=== PATIENT | male | born 1990 | race Caucasian/White ===

== ENCOUNTER 2022-10-23 16:43 | Emergency (ER) | payer OTHER, SELFPAY ==
[2022-10-23 17:06] VITALS: BP 134/83; PULSE 60; RESP 16; TEMP 36.4; O2SAT 99; BMI 23.7
--- NOTE | 2022-10-23 17:15 | DI.RAD.S_ITS ---
PROCEDURE: XR FOOT LT MIN 3V INDICATIONS: foot injury/pain TECHNIQUE: Three views of the foot were acquired. COMPARISON: None. FINDINGS: Bones: No fractures or dislocations. No suspicious bony lesions. Soft tissues: No tibiotalar joint effusion. Achilles tendon appears normal. IMPRESSION: Intact left foot. Dictated by: Deana Griffith M.D. on 10/23/2022 at 19:17 Approved by: Deana Griffith M.D. on 10/23/2022 at 19:17
--- NOTE | 2022-10-23 18:59 | ED_ITS ---
HPI - Extremity Injury (Lower) General Chief Complaint: Extremity Injury, Lower Stated Complaint: Smashed foot, Intense pain Time Seen by Provider: 10/23/22 18:59 Source: patient Mode of arrival: Ambulatory History of Present Illness HPI Narrative: 32-year-old male nonsmoker with noncontributory chronic medical history presents with his and a chief complaint of a work-related crush injury to his left foot. He states that he was moving a 1000 lb work stand that went over his foot earlier today. He states that he did not immediately have pain and in fact did not start having pain until he had gone home for a few hours. He states that he is now unable to weight bear and has significant pain circumferentially around his mid foot. He denies any ankle, calf or knee pain. He is able to move his toes but does state they feel like they might be tingling a bit. Related Data Previous Rx's Medication Instructions Recorded hydrocodone 5 mg-acetaminophen 325 1 tab PO Q4-6H PRN pain #10 tabs 10/23/22 mg tablet Allergies Allergy/AdvReac Type Severity Reaction Status Date / Time No Known Drug Allergies Allergy Verified 10/23/22 17:06 Review of Systems Review of Systems Narrative: GENERAL: Denies chills, fatigue, malaise, fever, sweats. HEENT: Denies sinus pain, ear pain, sore throat, difficulty swallowing, dizziness. RESPIRATORY: Denies dyspnea, cough, wheezing, hemoptysis, sputum. CARDIOVASCULAR: Denies chest pain, palpitations, orthopnea, edema, GASTROINTESTINAL: Denies nausea, vomiting, abdominal pain, diarrhea, constipation, melena. : Denies dysuria, frequency, incontinence, hematuria, urinary retention. MUSCULOSKELETAL: See HPI SKIN: Denies rash, skin lesions, or other NEUROLOGIC: Denies weakness, headache, numbness, change in speech, confusion, seizures, incoordination. PSYCHIATRIC: No concerning psychosocial issues. 12 point review of systems is negative except for those stated above Patient History Social History Smoking Status: Never smoker Smoking Status: Never smoker alcohol intake frequency: a few times a month Substance Use Type: does not use Exam Narrative Exam Narrative: GENERAL: [32] year old patient appears stated age. Well-developed patient, in mild distress. HEAD: Atraumatic. Normocephalic. EYES: Pupils equal round and reactive. Extraocular motions intact. No scleral icterus. No injection or drainage. ENT: Nose without bleeding, purulent drainage. Throat without erythema, tonsillar hypertrophy or exudate. Airway patent. NECK: Trachea midline. Non tender CARDIOVASCULAR: Regular rate and rhythm without murmurs, gallops, or rubs. RESPIRATORY: Clear to auscultation. Breath sounds equal bilaterally. No wheezes, rales, or rhonchi. GASTROINTESTINAL: Abdomen soft, non-tender, nondistended. EXTREMITIES: Minimal ecchymosis on lateral aspect of left foot, no significant swelling, cap refill less than 2 seconds, dorsalis pedis pulses palpable, no ot her discoloration. No pain overlying medial or lateral malleolus, no pain with squeeze test. Compartments soft BACK: Nontender without deformity or crepitance. No flank tenderness. NEURO: AOx3. SKIN: No rash or erythema of visible areas Initial Vital Signs Initial Vital Signs: Vital Signs Temperature 97.5 F L 10/23/22 17:06 Pulse Rate 60 10/23/22 17:06 Respiratory Rate 16 10/23/22 17:06 Blood Pressure 134/83 10/23/22 17:06 Pulse Oximetry 99 10/23/22 17:06 Oxygen Delivery Method 10/23/22 17:06 Procedures Orthopedic Splinting/Casting Injury #1: Side: right Lower Extremity Injury Location: foot Lower Extremity Immobilizer: post-op shoe Post splinting neuro exam: intact Post splinting vascular exam: intact Placed by: Nursing Course Orders Ordered: ED Orders 10/23/22 17:15 XR foot LT min 3V Stat Discontinued Medications Hydrocodone Bitart/Acetaminophen (Hydrocodone/Acet 5/325 Tablet) 1 tab PO NOW ONE Stop: 10/23/22 19:07 Last Admin: 10/23/22 19:15 Dose: 1 tab Documented By: JAUN Vital Signs Vital signs: Vital Signs - 8 hr 10/23/22 19:40 Pulse Rate 67 Blood Pressure 147/91 H Pulse Oximetry 98 Oxygen Delivery Method Room Air MDM - Extremity Injury (Lower) Imaging Data Extremity x-ray #1: Radiologist's Impression: Close Foot X-Ray (Signed) Deana Griffith - 10/23/[address] [address] XRay Report Signed Patient: Porfirio Mccloud MR#: [id number] : 1990 Acct:[id number] Age/Sex: 32 / M Date of Service: 10/23/22 Loc: ED Accession Number: [id number] ?? Procedure: XR foot LT min 3V Ordering Provider: Javier No D.O. PROCEDURE:? XR FOOT LT MIN 3V ? INDICATIONS:? foot injury/pain ? TECHNIQUE:? Three views of the foot were acquired.? ? COMPARISON:? None. ? FINDINGS:? ? Bones:? No fractures or dislocations.? No suspicious bony lesions.? ? Soft tissues:? No tibiotalar joint effusion.? Achilles tendon appears normal.? ? ? IMPRESSION:? Intact left foot. ? ? Dictated by: Deana Griffith M.D. on 10/23/2022 at 19:17 ? ? Approved by: Deana Griffith M.D. on 10/23/2022 at 19:17 ? Discharge Plan Departure Patient Disposition: Home Clinical Impression: Contusion of foot, right Instructions: DI for Contusion Activity Restrictions/Additional Instructions: *You have been diagnosed with [right foot contusion. As we discussed there is no suggestion of fracture or dislocation on the imaging] *What to do: *Please continue to take your regular medications as directed. [ x] New medication prescriptions sent to your pharmacy: [ [facility]] [ ] New medication written as a paper prescription [x] Tylenol and occasional Motrin for pain *Please follow up with [[facility] of [facility] in 2-3 days, call for an appointment. Let them know you were seen in the Emergency Department and that we ask that you be seen in follow up. We will electronically transmit a record of today's note if your PCP is in our system *Return to Emergency Department if you should have any new, worsening or concerning symptoms, such as [worsening pain, significant swelling, cold extremities, numbness, tingling, weakness or other bothersome symptoms Please weight bear to tolerance, use splint and crutches until follow-up. You have been prescribed a short course of narcotic medications. These are potentially dangerous and addictive medications that should be used carefully. While on these medications you cannot drive or operate heavy machinery. Additionally, you cannot sign legal documents or perform any duties such as this. 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 Please understand that we cannot provide further refills of narcotics or controlled substances through the ED and your pain management will need to be through your Primary Care Provider Prescriptions: New hydrocodone-acetaminophen 5-325 mg tablet 1 tab PO Q4-6H PRN (Reason: pain) Qty: 10 0RF Referrals: Carli Quesada MD [Physician] - Visit Report Forms: Patient Portal/API
[2022-10-23] MEDS: HYDROCODONE/ACET 5/325 TABLET 1 TAB PO (19:15)
[2022-10-23 19:40] VITALS: BP 147/91; PULSE 67; O2SAT 98
== END 2022-10-23 19:46 | disposition home or self-care (01) ==
PROVIDERS: Emergency Provider Emergency Medicine
DX: S90.32XA Contusion of left foot, initial encounter (principal); W23.0XXA Caught, crushed, jammed, or pinched between moving objects, initial encounter; Y99.0 Civilian activity done for income or pay
CPT/HCPCS: 73630; 99283; 99284